=== PATIENT | male | born 1990 | race Caucasian/White ===

== ENCOUNTER 2019-01-29 19:44 | Emergency (ER) | payer OTHER ==
[2019-01-29 19:52] VITALS: BP 145/99
[2019-01-29] MEDS ORDERED: MORPHINE 10 MG/ML VIAL IM STA (20:16)
--- NOTE | 2019-01-29 20:18 | ED Physician Documentation ---
PD HPI UPPER EXT INJURY - Stated complaint Stated Complaint: RT ARM PAIN - Chief complaint Chief Complaint: Ext Problem - History obtained from History obtained from: Patient - History of Present Illness Location: Right (Throwing a softball overhand tonight and developed severe pain in the back of the elbow radiating up to the shoulder and down to the wrist. He had a similar episode a week ago that was much milder and resolved with some stretching.) Review of Systems Constitutional: denies: Fever, Chills Cardiac: denies: Chest pain / pressure, Palpitations Respiratory: denies: Dyspnea, Cough PD PAST MEDICAL HISTORY - Past Medical History Past Medical History: No Cardiovascular: None Respiratory: None Neuro: None Endocrine/Autoimmune: None GI: None : None HEENT: None Psych: None Musculoskeletal: None Derm: None - Past Surgical History Past Surgical History: Yes HEENT: Other - Present Medications Home Medications: Ambulatory Orders Medication Instructions Recorded Confirmed Ibuprofen [Motrin] 800 mg PO Q8H PRN #30 tablet 01/29/19 Oxycodone HCl/Acetaminophen 1 - 2 each PO Q6H PRN #14 tablet 01/29/19 [Percocet 5-325 mg Tablet] - Allergies Allergies/Adverse Reactions: Allergies Allergy/AdvReac Type Severity Reaction Status Date / Time No Known Drug Allergies Allergy Verified 01/29/19 19:48 - Social History Does the pt smoke?: No Smoking Status: Never smoker Does the pt drink ETOH?: Yes ETOH Use: Liquor Does the pt have substance abuse?: No - Immunizations Immunizations are current?: Yes - POLST Patient has POLST: No PD ED PE NORMAL - Vitals Vital signs reviewed: Yes - General General: Alert and oriented X 3, Other (He appears to be in pain) - Neck Neck: Supple, no meningeal sign, No bony TTP - Extremities Extremities: Other (There is diffuse tenderness of the right upper extremity, hard to localize. The worst of it seems to be on the posterior distal humerus. He has mildly decreased sensation on the ulnar side of the right hand, he is unable to range the elbow or the shoulder at all) - Neuro Neuro: Alert and oriented X 3, Normal speech Results - Vitals Vitals: Vital Signs - 24 hr 01/29/19 19:48 Temperature 36.8 C Heart Rate 72 Respiratory 19 Rate Blood Pressure 145/99 H O2 Saturation 100 Oxygen O2 Source Room air - Rads (name of study) R elbow/R shoulder Radiology: EMP read contemporaneously (NAD) PD MEDICAL DECISION MAKING - ED course ED course: 28-year-old gentleman presents with severe pain kind of over the deltoid after throwing a softball. Seems like a tendon injury, I am unable to range him in any way to specifically test anything and his pain was hard to control. X-rays were negative. He is placed in a sling [place] 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 Return for new or worsening symptoms. Do not drink or drive while taking narcotic pain medication. Note that many narcotic pain relievers also contain Tylenol/acetaminophen. Please ensure that your total dose of acetaminophen from all sources does not exceed 3 g (3000 mg) per day. You may get constipated while on this medication. Take a stool softener such as Colace twice a day while you are on it. Also add an [id number] laxative such as senna or MiraLAX on any day that you do not have a bowel movement. If you received a narcotic pain medication or sedative while in the emergency department, do not drive for the next 24 hours. Forms: Activity restrictions
[2019-01-29] MEDS ORDERED: HYDROmorphone 1 MG/ML CARPUJECT IM STA (20:58)
--- NOTE | 2019-01-29 21:16 | XRAY Report ---
Reason: shoulder/elbow pain Procedure Date: 01/29/2019 Accession Number: [id number] / [id number] Procedure: XR - Elbow 3 View RT CPT Code: FULL RESULT: EXAM: RIGHT ELBOW RADIOGRAPHY EXAM DATE: 01/29/2019 08:57 PM. CLINICAL HISTORY: Trauma, pain. COMPARISON: None. TECHNIQUE: 3 views. FINDINGS: Bones: Normal. No fractures or bone lesions. Joints: Normal. No effusion. No subluxation. Soft Tissues: Unremarkable. IMPRESSION: Normal elbow radiography. [facility]
--- NOTE | 2019-01-29 21:17 | XRAY Report ---
Reason: shoulder/elbow pain Procedure Date: 01/29/2019 Accession Number: [id number] / [id number] Procedure: XR - Shoulder 2 View RT CPT Code: FULL RESULT: EXAM: RIGHT SHOULDER RADIOGRAPHY EXAM DATE: 01/29/2019 08:57 PM. CLINICAL HISTORY: Trauma, pain. COMPARISON: None. TECHNIQUE: 2 views. FINDINGS: Bones: Normal. No fracture or bone lesion. Joints: The glenohumeral and acromioclavicular joints are normal. Soft tissues: The visualized hemithorax is unremarkable. No soft tissue swelling. IMPRESSION: Normal shoulder radiography. [facility]
[2019-01-29] MEDS ORDERED: oxyCODONE/ACET 5/325 Prepack 4 PO STA (21:25)
== END 2019-01-29 21:38 | disposition home or self-care (01) ==
LOC: ED 19:44
DX: S46.911A Strain of unspecified muscle, fascia and tendon at shoulder and upper arm level, right arm, initial encounter (principal); X50.9XXA Other and unspecified overexertion or strenuous movements or postures, initial encounter; Y93.64 Activity, baseball
CPT/HCPCS: 73030; 73080; 96372; 99283; J1170